=== PATIENT | male | born 1990 | race Hispanic/Latino ===

== ENCOUNTER 2018-02-18 14:19 | Inpatient (IN) | payer OTHER ==
[~2018-02-18] VITALS: Ht 188 cm; Wt 113.6 kg
[2018-02-18 14:34] LABS: BASOPHILS % (AUTO) 0.3 % (0.0-5.0); MEAN CORPUSCULAR HEMOGLOBIN 31.1 pg (27.0-33.0); MEAN CORPUSCULAR HGB CONC 35.2 g/dL (32.0-36.0); MEAN CORPUSCULAR VOLUME 88.3 fL (79-99); MONOCYTES % (AUTO) 5.4 % (3.0-13.0); NEUTROPHILS % (AUTO) 90.3 % (40.0-77.0); PLATELET COUNT (AUTO) 162 K/uL (130-400); RED BLOOD CELL COUNT(AUTO) 5.44 MIL/uL (4.50-6.20); WHITE BLOOD COUNT (AUTO) 12.9 K/uL (4.8-10.8)
[2018-02-18 14:46] LABS: CREATININE 2.4 mg/dL (0.5-1.5); POTASSIUM 3.5 mmol/L (3.5-5.1)
[2018-02-18] MEDS ORDERED: SODIUM CHLORIDE 0.9% 1000ML 1,000 ML IV ONE ×2 (14:51→16:52)
[2018-02-18] MEDS ORDERED: ONDANSETRON HCL MDV 20ML 2 MG/ML VIAL ONE ×2 (14:51→22:10)
[2018-02-18] MEDS ORDERED: MORPHINE SULFATE 4 MG/1ML SYG ONE ×2 (14:51→16:53)
[2018-02-18 14:55] LABS: ALBUMIN 3.4 g/dL (3.5-5.0); BILIRUBIN,TOTAL 2.7 mg/dL (0.2-1.0)
[2018-02-18 17:28] LABS: INR 2.38 (0.85-1.15); PARTIAL THROMBOPLASTIN TIME 31.5 SEC (26.3-35.5); PROTHROMBIN TIME 24.6 SEC (9.6-11.6)
[2018-02-18 17:49] LABS: AMPHET/METH SCREEN,URINE NEGATIVE (NEGATIVE); BARBITURATE SCREEN, URINE NEGATIVE (NEGATIVE); BENZODIAZEPINES SCREEN,URINE NEGATIVE (NEGATIVE); CANNABINOID SCREEN,URINE NEGATIVE (NEGATIVE); COCAINE SCREEN,URINE POSITIVE (NEGATIVE); OPIATE SCREEN,URINE NEGATIVE (NEGATIVE); PHENCYCLIDINE SCREEN,URINE NEGATIVE (NEGATIVE)
[2018-02-18] MEDS ORDERED: MORPHINE SULFATE 2 MG/ML 1ML SYG IV PRN (18:00)
[2018-02-18] MEDS ORDERED: MAG HYDROX/AL HYDROX/SIMETH ES 30 ML SUSP UDCUP PO PRN (18:00)
[2018-02-18] MEDS ORDERED: IBUPROFEN 400 MG TABLET PO PRN (18:00)
[2018-02-18] MEDS ORDERED: HYDRALAZINE HCL 20 MG/ML VIAL IV PRN (18:00)
[2018-02-18 18:52] LABS: CHOLESTEROL 94 mg/dL (<200); HDL CHOLESTEROL 49 mg/dL (29-71); LDL DIRECT 44 mg/dL (0-99); TRIGLYCERIDES 46 mg/dL (30-200)
[2018-02-18] MEDS: SODIUM CHLORIDE 0.9% 1000ML 1,000 ML IV SCH (19:30)
[2018-02-18 20:30] VITALS: BP 110/46
[2018-02-18] MEDS: ONDANSETRON HCL 4 MG/2 ML VIAL IV PRN (22:11)
[2018-02-18 23:00] VITALS: BP 112/48
[2018-02-19] VITALS (7 sets, daily range): BP systolic 110–138; BP diastolic 50–80
[2018-02-19] MEDS: SODIUM CHLORIDE 0.9% 1000ML 1,000 ML IV SCH ×2 (02:04→20:54)
[2018-02-19 05:02] LABS: HEMATOCRIT 44.4 % (42-54); MEAN CORPUSCULAR HEMOGLOBIN 32.1 pg (27.0-33.0); MEAN CORPUSCULAR HGB CONC 36.3 g/dL (32.0-36.0); MEAN CORPUSCULAR VOLUME 88.5 fL (79-99); NUCLEATED RED BLOOD CELLS 0.1 % (0.0-0.19); PLATELET COUNT (AUTO) 144 K/uL (130-400); RED BLOOD CELL COUNT(AUTO) 5.02 MIL/uL (4.50-6.20); RED CELL DISTRIBUTION WIDTH 12.9 % (11.0-15.5); WHITE BLOOD COUNT (AUTO) 10.1 K/uL (4.8-10.8)
[2018-02-19 05:13] LABS: CREATININE 2.3 mg/dL (0.5-1.5); MAGNESIUM 1.9 mg/dL (1.80-2.40); POTASSIUM 3.6 mmol/L (3.5-5.1)
[2018-02-19 05:56] LABS: INR 1.63 (0.85-1.15); PARTIAL THROMBOPLASTIN TIME 30.8 SEC (26.3-35.5)
[2018-02-19] MEDS ORDERED: MORPHINE SULFATE 4 MG/1ML SYG ONE (08:25)
[2018-02-19] MEDS: PANTOPRAZOLE SODIUM 40 MG TABLET.DR PO SCH (08:28)
[2018-02-19] MEDS ORDERED: ONDANSETRON HCL MDV 20ML 2 MG/ML VIAL ONE (08:37)
[2018-02-19] MEDS: ONDANSETRON HCL 4 MG/2 ML VIAL IV PRN (08:42)
[2018-02-19 09:25] LABS: ALBUMIN 3.2 g/dL (3.5-5.0); BILIRUBIN,TOTAL 2.1 mg/dL (0.2-1.0); TOTAL PROTEIN, SERUM 6.3 g/dL (6.0-8.3)
[2018-02-19 11:51] LABS: % IRON SATURATION 46.6 % (30-44)
[2018-02-19] MEDS: MORPHINE SULFATE 4 MG/1ML SYG IV PRN ×2 (13:42→20:54)
[2018-02-19] MEDS ORDERED: BISACODYL 10 MG SUPP.RECT RC PRN (19:00)
[2018-02-20] VITALS (7 sets, daily range): BP systolic 115–140; BP diastolic 68–94
[2018-02-20 04:45] LABS: INR 1.27 (0.85-1.15); PARTIAL THROMBOPLASTIN TIME 28.5 SEC (26.3-35.5); PROTHROMBIN TIME 13.3 SEC (9.6-11.6)
[2018-02-20 05:15] LABS: BILIRUBIN,DIRECT 1.3 mg/dL (0.0-0.3); BILIRUBIN,TOTAL 2.7 mg/dL (0.2-1.0); CREATININE 2.5 mg/dL (0.5-1.5); POTASSIUM 3.8 mmol/L (3.5-5.1); TOTAL PROTEIN, SERUM 6.1 g/dL (6.0-8.3)
[2018-02-20] MEDS: SODIUM CHLORIDE 0.9% 1000ML 1,000 ML IV SCH ×2 (05:34→19:55)
[2018-02-20 08:21] LABS: HEPATITIS A ANTIBODY IGM Negative (Negative); HEPATITIS B CORE IGM Negative (Negative); HEPATITIS Bs ANTIGEN SCREEN P Negative (Negative)
[2018-02-20] MEDS: PANTOPRAZOLE SODIUM 40 MG TABLET.DR PO SCH (10:25)
[2018-02-20] MEDS: MORPHINE SULFATE 4 MG/1ML SYG IV PRN ×2 (14:52→19:55)
[2018-02-21] MEDS: SODIUM CHLORIDE 0.9% 1000ML 1,000 ML IV SCH ×2 (01:39→20:22)
[2018-02-21 04:00] VITALS: BP 132/76
[2018-02-21 05:53] LABS: BASOPHILS % (AUTO) 0.5 % (0.0-5.0); EOSINOPHILS % (AUTO) 1.8 % (0.0-8.0); HEMATOCRIT 42.2 % (42-54); LYMPHOCYTES % (AUTO) 14.7 % (21.0-51.0); MEAN CORPUSCULAR HEMOGLOBIN 31.6 pg (27.0-33.0); MEAN CORPUSCULAR HGB CONC 35.4 g/dL (32.0-36.0); MEAN CORPUSCULAR VOLUME 89.3 fL (79-99); MONOCYTES % (AUTO) 10.3 % (3.0-13.0); NEUTROPHILS % (AUTO) 72.7 % (40.0-77.0); PLATELET COUNT (AUTO) 153 K/uL (130-400); RED BLOOD CELL COUNT(AUTO) 4.73 MIL/uL (4.50-6.20); RED CELL DISTRIBUTION WIDTH 13.2 % (11.0-15.5); WHITE BLOOD COUNT (AUTO) 9.4 K/uL (4.8-10.8)
[2018-02-21 06:18] LABS: ALBUMIN 2.9 g/dL (3.5-5.0); BILIRUBIN,TOTAL 2.1 mg/dL (0.2-1.0); CREATININE 2.9 mg/dL (0.5-1.5); POTASSIUM 3.6 mmol/L (3.5-5.1); TOTAL PROTEIN, SERUM 6.2 g/dL (6.0-8.3)
[2018-02-21 07:00] VITALS: BP 131/79
[2018-02-21] MEDS: PANTOPRAZOLE SODIUM 40 MG TABLET.DR PO SCH (09:04)
[2018-02-21] MEDS: MORPHINE SULFATE 4 MG/1ML SYG IV PRN ×3 (09:05→23:35)
[2018-02-21] MEDS: ONDANSETRON HCL MDV 20ML 2 MG/ML VIAL IV PRN (10:45)
[2018-02-21 11:00] VITALS: BP 128/77
[2018-02-21 19:30] VITALS: BP 139/83
[2018-02-21 23:57] VITALS: BP 126/57
[2018-02-22] MEDS: SODIUM CHLORIDE 0.9% 1000ML 1,000 ML IV SCH ×4 (01:19→21:48)
[2018-02-22 04:15] VITALS: BP 133/79
[2018-02-22 07:00] VITALS: BP 132/95
[2018-02-22] MEDS: MORPHINE SULFATE 4 MG/1ML SYG IV PRN ×3 (08:48→19:54)
[2018-02-22] MEDS: ONDANSETRON HCL MDV 20ML 2 MG/ML VIAL IV PRN ×2 (08:49→23:35)
[2018-02-22] MEDS: PANTOPRAZOLE SODIUM 40 MG TABLET.DR PO SCH (08:54)
[2018-02-22 11:00] VITALS: BP 121/76
[2018-02-22 19:25] VITALS: BP 131/80
[2018-02-23 00:20] VITALS: BP 134/79
[2018-02-23] MEDS: SODIUM CHLORIDE 0.9% 1000ML 1,000 ML IV SCH ×4 (01:50→15:57)
[2018-02-23 03:36] VITALS: BP 131/81
[2018-02-23 07:00] VITALS: BP 122/89
[2018-02-23 09:15] LABS: ALBUMIN 3.2 g/dL (3.5-5.0); BILIRUBIN,TOTAL 1.8 mg/dL (0.2-1.0); CREATININE 3.2 mg/dL (0.5-1.5); POTASSIUM 4.1 mmol/L (3.5-5.1)
[2018-02-23] MEDS: PANTOPRAZOLE SODIUM 40 MG TABLET.DR PO SCH (10:08)
[2018-02-23 11:00] VITALS: BP 131/59
[2018-02-23] MEDS: MORPHINE SULFATE 4 MG/1ML SYG IV PRN (15:46)
[2018-02-23 16:23] VITALS: BP 108/53
[2018-02-23 16:26] LABS: CREATINE KINASE MB < 0.5 ng/mL (0.5-3.6); CREATINE KINASE, TOTAL 54 U/L (21-232); MYOGLOBIN 61 ng/mL (10-92); TROPONIN I < 0.04 ng/mL (0.00-0.06)
[2018-02-23 18:29] LABS: APPEARANCE,URINE Clear (CLEAR); BILIRUBIN,URINE Negative (NEGATIVE); COLOR,URINE Yellow (YELLOW); GLUCOSE, URINE (UA) Negative (NEGATIVE); KETONES,URINE Trace mg/dL (NEGATIVE); LEUKOCYTE ESTERASE ,URINE Negative (NEGATIVE); NITRATE,URINE Negative (NEGATIVE); OCCULT BLOOD,URINE Trace (NEGATIVE); PROTEIN,URINE Negative (NEGATIVE)
[2018-02-23 19:15] VITALS: BP 139/87
[2018-02-23 20:28] LABS: BACTERIA,URINE Rare /HPF (None Seen); RBC,URINE 0-1 /HPF (0-1); SQUAMOUS EPITHELIAL CELL,UR Rare /HPF (0-2); WBC,URINE 0-1 /HPF (0-1)
[2018-02-24] MEDS: SODIUM CHLORIDE 0.9% 1000ML 1,000 ML IV SCH ×3 (00:06→20:19)
[2018-02-24] MEDS: MORPHINE SULFATE 4 MG/1ML SYG IV PRN (00:07)
[2018-02-24 00:15] VITALS: BP 140/79
[2018-02-24 04:18] VITALS: BP 138/69
[2018-02-24 06:16] LABS: MEAN CORPUSCULAR HEMOGLOBIN 31.6 pg (27.0-33.0); MEAN CORPUSCULAR HGB CONC 35.6 g/dL (32.0-36.0); MEAN CORPUSCULAR VOLUME 88.9 fL (79-99); PLATELET COUNT (AUTO) 144 K/uL (130-400); RED BLOOD CELL COUNT(AUTO) 4.95 MIL/uL (4.50-6.20); RED CELL DISTRIBUTION WIDTH 13.5 % (11.0-15.5); WHITE BLOOD COUNT (AUTO) 11.2 K/uL (4.8-10.8)
[2018-02-24 06:51] LABS: ALBUMIN 3.2 g/dL (3.5-5.0); BILIRUBIN,TOTAL 2.1 mg/dL (0.2-1.0); CREATININE 2.9 mg/dL (0.5-1.5); POTASSIUM 3.6 mmol/L (3.5-5.1); TOTAL PROTEIN, SERUM 7.1 g/dL (6.0-8.3)
[2018-02-24 08:00] VITALS: BP 146/81
[2018-02-24] MEDS: PANTOPRAZOLE SODIUM 40 MG TABLET.DR PO SCH (08:18)
[2018-02-24 12:00] VITALS: BP 132/76
[2018-02-24 16:00] VITALS: BP 142/61
[2018-02-24 20:00] VITALS: BP 130/74
[2018-02-25] VITALS: BP 109/60
[2018-02-25] MEDS: SODIUM CHLORIDE 0.9% 1000ML 1,000 ML IV SCH ×4 (00:54→23:01)
[2018-02-25] MEDS: MORPHINE SULFATE 4 MG/1ML SYG IV PRN ×2 (01:16→06:54)
[2018-02-25 05:09] LABS: HEMATOCRIT 43.9 % (42-54); MEAN CORPUSCULAR HEMOGLOBIN 31.4 pg (27.0-33.0); MEAN CORPUSCULAR VOLUME 89.8 fL (79-99); PLATELET COUNT (AUTO) 131 K/uL (130-400); RED BLOOD CELL COUNT(AUTO) 4.89 MIL/uL (4.50-6.20); RED CELL DISTRIBUTION WIDTH 13.3 % (11.0-15.5); WHITE BLOOD COUNT (AUTO) 10.2 K/uL (4.8-10.8)
[2018-02-25 05:35] LABS: ALBUMIN 3.2 g/dL (3.5-5.0); BILIRUBIN,TOTAL 1.9 mg/dL (0.2-1.0); CREATININE 2.6 mg/dL (0.5-1.5); POTASSIUM 3.5 mmol/L (3.5-5.1)
[2018-02-25 08:00] VITALS: BP 128/67
[2018-02-25] MEDS: PANTOPRAZOLE SODIUM 40 MG TABLET.DR PO SCH (09:27)
[2018-02-25 12:00] VITALS: BP 132/82
[2018-02-25] MEDS ORDERED: DIATR MEGLU/DIATRIZOATE SODIUM 30 ML BOTTLE ONE (12:15)
[2018-02-25] MEDS ORDERED: POTASSIUM CHLORIDE 20 MEQ ERTAB PO ONE (13:10)
[2018-02-25] MEDS: POTASSIUM CHLORIDE 20 MEQ ERTAB PO SCH ×2 (14:49→15:10)
[2018-02-25 16:00] VITALS: BP 123/69
[2018-02-25 20:00] VITALS: BP 132/83
[2018-02-26] VITALS: BP 133/73
[2018-02-26] MEDS: SODIUM CHLORIDE 0.9% 1000ML 1,000 ML IV SCH ×4 (00:57→17:03)
[2018-02-26 05:01] LABS: ALBUMIN 3.1 g/dL (3.5-5.0); BILIRUBIN,TOTAL 1.9 mg/dL (0.2-1.0); CREATININE 2.2 mg/dL (0.5-1.5); POTASSIUM 3.6 mmol/L (3.5-5.1)
[2018-02-26 05:18] LABS: INR 1.15 (0.85-1.15); PARTIAL THROMBOPLASTIN TIME 28.6 SEC (26.3-35.5)
[2018-02-26 05:29] VITALS: BP 114/70
[2018-02-26 08:00] VITALS: BP 119/74
[2018-02-26] MEDS: PANTOPRAZOLE SODIUM 40 MG TABLET.DR PO SCH (08:21)
[2018-02-26 11:44] VITALS: BP 104/63
[2018-02-26] MEDS: MORPHINE SULFATE 4 MG/1ML SYG IV PRN ×2 (12:58→22:16)
[2018-02-26 16:00] VITALS: BP 139/76
[2018-02-26 19:47] VITALS: BP 113/64
[2018-02-27] MEDS: SODIUM CHLORIDE 0.9% 1000ML 1,000 ML IV SCH ×4 (00:18→22:08)
[2018-02-27 00:25] VITALS: BP 125/72
[2018-02-27 04:34] VITALS: BP 109/55
[2018-02-27 05:25] LABS: ALBUMIN 2.9 g/dL (3.5-5.0); BILIRUBIN,DIRECT 0.5 mg/dL (0.0-0.3); CREATININE 2.4 mg/dL (0.5-1.5); POTASSIUM 3.3 mmol/L (3.5-5.1); TOTAL PROTEIN, SERUM 6.6 g/dL (6.0-8.3)
[2018-02-27] MEDS: MORPHINE SULFATE 4 MG/1ML SYG IV PRN ×2 (06:55→22:07)
[2018-02-27 09:13] VITALS: BP 122/74
[2018-02-27] MEDS: PANTOPRAZOLE SODIUM 40 MG TABLET.DR PO SCH (09:40)
[2018-02-27 12:00] VITALS: BP 118/68
[2018-02-27] MEDS ORDERED: LIDOCAINE HCL-MPF 1% 2ML VIAL IVP PRN (12:15)
[2018-02-27] MEDS ORDERED: POTASSIUM CHLORIDE 20MEQ/100ML 100 ML IV PRN (12:15)
[2018-02-27] MEDS ORDERED: POTASSIUM CHLORIDE 20 MEQ ERTAB PO PRN (12:15)
[2018-02-27] MEDS ORDERED: POTASSIUM CHLORIDE 10% ELIXIR 20 MEQ/15 ML UDCUP PO PRN (12:15)
[2018-02-27 16:58] VITALS: BP 122/84
[2018-02-27 20:37] VITALS: BP 126/69
[2018-02-28 00:04] VITALS: BP 110/62
[2018-02-28 03:42] VITALS: BP 106/56
[2018-02-28 05:51] LABS: ALBUMIN 3.1 g/dL (3.5-5.0); BILIRUBIN,DIRECT 0.4 mg/dL (0.0-0.3); MAGNESIUM 1.7 mg/dL (1.80-2.40); POTASSIUM 3.5 mmol/L (3.5-5.1); TOTAL PROTEIN, SERUM 6.9 g/dL (6.0-8.3)
[2018-02-28] MEDS: SODIUM CHLORIDE 0.9% 1000ML 1,000 ML IV SCH ×2 (06:18→23:30)
[2018-02-28 09:23] VITALS: BP 119/74
[2018-02-28] MEDS ORDERED: POTASSIUM CHLORIDE 20 MEQ ERTAB PO SCH (09:30)
[2018-02-28] MEDS: PANTOPRAZOLE SODIUM 40 MG TABLET.DR PO SCH (09:43)
[2018-02-28] MEDS ORDERED: MAGNESIUM 2GM PREMIX 50ML 50 ML IV SCH (15:45)
[2018-02-28 17:39] VITALS: BP 120/92
[2018-02-28 19:27] VITALS: BP 113/61
[2018-02-28] MEDS ORDERED: DIATR MEGLU/DIATRIZOATE SODIUM 30 ML BOTTLE ONE (22:32)
[2018-02-28 23:48] VITALS: BP 117/74
[2018-03-01 03:10] VITALS: BP 114/56
[2018-03-01 05:31] LABS: ALBUMIN 3.4 g/dL (3.5-5.0); BILIRUBIN,DIRECT 0.5 mg/dL (0.0-0.3); BILIRUBIN,TOTAL 1.3 mg/dL (0.2-1.0); CREATININE 1.9 mg/dL (0.5-1.5); POTASSIUM 3.6 mmol/L (3.5-5.1); TOTAL PROTEIN, SERUM 7.5 g/dL (6.0-8.3)
[2018-03-01 08:00] VITALS: BP 113/53
[2018-03-01] MEDS: PANTOPRAZOLE SODIUM 40 MG TABLET.DR PO SCH (08:51)
[2018-03-01] MEDS: SODIUM CHLORIDE 0.9% 1000ML 1,000 ML IV SCH (08:54)
[2018-03-01 11:00] VITALS: BP 101/66
[2018-03-01 16:00] VITALS: BP 132/64
[2018-03-01] MEDS ORDERED: PANT40TA PO (16:44)
== END 2018-03-01 19:30 | disposition home or self-care (01) | DRG 441 ==
LOC: EDH 14:19 → EDHIP 14:20 → 3DH 02-19 00:32
PROVIDERS: ADMIT Internal Medicine Nephrology; ATTEND Internal Medicine Nephrology
DX: K72.00 Acute and subacute hepatic failure without coma (principal); K85.90 Acute pancreatitis without necrosis or infection, unspecified; N17.0 Acute kidney failure with tubular necrosis; K92.0 Hematemesis; D68.4 Acquired coagulation factor deficiency; D69.59 Other secondary thrombocytopenia; E86.0 Dehydration; B17.9 Acute viral hepatitis, unspecified; F10.10 Alcohol abuse, uncomplicated; F14.90 Cocaine use, unspecified, uncomplicated; F17.210 Nicotine dependence, cigarettes, uncomplicated; N18.9 Chronic kidney disease, unspecified; T50.905A Adverse effect of unspecified drugs, medicaments and biological substances, initial encounter; Y92.89 Other specified places as the place of occurrence of the external cause
CPT/HCPCS: 36415; 74150; 74176; 76705; 80048; 80053; 80061; 80074; 80076; 80305; 81001; 82150; 82550; 82553; 83540; 83550; 83690; 83735; 83874; 84484; 85025; 85027; 85610; 85730; 86160; 86255; 86701; 87390; 99291; G0480; J2270; J3475; J7030; Q9963

== ENCOUNTER 2020-04-02 06:48 | Emergency (ER) | payer SELFPAY ==
[~2020-04-02 06:48] MED LIST: PANT40TA PO
[2020-04-02] MEDS ORDERED: ONDANSETRON HCL 4 MG/2 ML VIAL ONE (07:23)
[2020-04-02] MEDS ORDERED: SODIUM CHLORIDE 0.9% 1000ML 1,000 ML IV ONE ×2 (07:23→11:32)
[2020-04-02] MEDS ORDERED: FAMOTIDINE/PF 20 MG/2 ML VIAL IV ONE (07:24)
[2020-04-02 07:29] LABS: BASOPHILS % (AUTO) 0.3 % (0.0-5.0); EOSINOPHILS % (AUTO) 1.2 % (0.0-8.0); HEMATOCRIT 48.6 % (42-54); LYMPHOCYTES % (AUTO) 11.4 % (21.0-51.0); MEAN CORPUSCULAR HEMOGLOBIN 30.9 pg (27.0-33.0); MEAN CORPUSCULAR HGB CONC 34.4 g/dL (32.0-36.0); MEAN CORPUSCULAR VOLUME 89.8 fL (79-99); MONOCYTES % (AUTO) 5.3 % (3.0-13.0); NEUTROPHILS % (AUTO) 81.3 % (40.0-77.0); PLATELET COUNT (AUTO) 257 K/uL (130-400); RED BLOOD CELL COUNT(AUTO) 5.41 MIL/uL (4.50-6.20); RED CELL DISTRIBUTION WIDTH 12.3 % (11.0-15.5); WHITE BLOOD COUNT (AUTO) 18.4 K/uL (4.8-10.8)
[2020-04-02 07:47] LABS: INR 0.92 (0.85-1.15); PARTIAL THROMBOPLASTIN TIME 28.5 SEC (26.3-35.5)
[2020-04-02 07:54] LABS: CREATININE 1.2 mg/dL (0.5-1.5); POTASSIUM 3.7 mmol/L (3.5-5.1)
[2020-04-02 07:54] LABS: APPEARANCE,URINE Clear (CLEAR); BILIRUBIN,URINE Negative (NEGATIVE); COLOR,URINE Yellow (YELLOW); GLUCOSE, URINE (UA) Negative (NEGATIVE); KETONES,URINE Negative (NEGATIVE); LEUKOCYTE ESTERASE ,URINE Negative (NEGATIVE); NITRATE,URINE Negative (NEGATIVE); OCCULT BLOOD,URINE Trace (NEGATIVE); PROTEIN,URINE Trace mg/dL (NEGATIVE)
[2020-04-02 08:00] LABS: BILIRUBIN,TOTAL 0.2 mg/dL (0.2-1.0)
[2020-04-02 08:02] LABS: AMPHET/METH SCREEN,URINE POSITIVE (NEGATIVE); BARBITURATE SCREEN, URINE NEGATIVE (NEGATIVE); BENZODIAZEPINES SCREEN,URINE NEGATIVE (NEGATIVE); CANNABINOID SCREEN,URINE NEGATIVE (NEGATIVE); COCAINE SCREEN,URINE NEGATIVE (NEGATIVE); OPIATE SCREEN,URINE NEGATIVE (NEGATIVE); PHENCYCLIDINE SCREEN,URINE NEGATIVE (NEGATIVE)
[2020-04-02] MEDS ORDERED: HYOSCYAMINE SULFATE 0.125 MG TAB.SUBL SL ONE (08:47)
[2020-04-02] MEDS ORDERED: KETOROLAC TROMETHAMINE 30MG/ML ONE (09:17)
[2020-04-02 09:18] LABS: BACTERIA,URINE Few /HPF (None Seen); RBC,URINE 0-1 /HPF (0-1); SQUAMOUS EPITHELIAL CELL,UR 0-2 /HPF (0-2); WBC,URINE 0-1 /HPF (0-1)
[2020-04-02 09:19] LABS: CALCIUM OXALATE CRYSTALS,UR Few /LPF (None Seen)
[2020-04-02] MEDS ORDERED: LEVOFLOXACIN 500 MG/D5W 100 ML 100 ML ONE (11:33)
== END 2020-04-02 12:43 | disposition home or self-care (01) ==
LOC: EDH 06:48
DX: A09 Infectious gastroenteritis and colitis, unspecified (principal); Z72.0 Tobacco use
CPT/HCPCS: 36415; 71045; 74176; 76705; 80053; 80305; 81001; 82150; 82550; 83690; 84484; 85025; 85610; 85730; 93005; 96361; 96365; 96375; 99285; J1885; J1956; J2405; J3490; J7030 ×2

== ENCOUNTER 2020-04-05 09:23 | Emergency (ER) | payer SELFPAY ==
[2020-04-05 10:09] LABS: BASOPHILS % (AUTO) 0.4 % (0.0-5.0); EOSINOPHILS % (AUTO) 2.3 % (0.0-8.0); HEMATOCRIT 48.4 % (42-54); LYMPHOCYTES % (AUTO) 18.5 % (21.0-51.0); MEAN CORPUSCULAR HEMOGLOBIN 30.9 pg (27.0-33.0); MEAN CORPUSCULAR HGB CONC 34.3 g/dL (32.0-36.0); MEAN CORPUSCULAR VOLUME 90.1 fL (79-99); MONOCYTES % (AUTO) 7.5 % (3.0-13.0); NEUTROPHILS % (AUTO) 70.9 % (40.0-77.0); PLATELET COUNT (AUTO) 278 K/uL (130-400); RED BLOOD CELL COUNT(AUTO) 5.37 MIL/uL (4.50-6.20); RED CELL DISTRIBUTION WIDTH 12.2 % (11.0-15.5); WHITE BLOOD COUNT (AUTO) 14.2 K/uL (4.8-10.8)
[2020-04-05 10:11] LABS: APPEARANCE,URINE Clear (CLEAR); BILIRUBIN,URINE Negative (NEGATIVE); COLOR,URINE Yellow (YELLOW); GLUCOSE, URINE (UA) Negative (NEGATIVE); KETONES,URINE Negative (NEGATIVE); LEUKOCYTE ESTERASE ,URINE Negative (NEGATIVE); NITRATE,URINE Negative (NEGATIVE); OCCULT BLOOD,URINE Negative (NEGATIVE); PROTEIN,URINE Negative (NEGATIVE)
[2020-04-05 10:16] LABS: AMPHET/METH SCREEN,URINE NEGATIVE (NEGATIVE); BARBITURATE SCREEN, URINE NEGATIVE (NEGATIVE); BENZODIAZEPINES SCREEN,URINE NEGATIVE (NEGATIVE); CANNABINOID SCREEN,URINE NEGATIVE (NEGATIVE); COCAINE SCREEN,URINE NEGATIVE (NEGATIVE); OPIATE SCREEN,URINE NEGATIVE (NEGATIVE); PHENCYCLIDINE SCREEN,URINE NEGATIVE (NEGATIVE)
[2020-04-05] MEDS ORDERED: FAMOTIDINE/PF 20 MG/2 ML VIAL IV ONE (10:29)
[2020-04-05] MEDS ORDERED: MAG HYDROX/AL HYDROX/SIMETH ES 30 ML SUSP UDCUP ONE (10:29)
[2020-04-05] MEDS ORDERED: LIDOCAINE HCL 2% VISCOUS 15 ML UDCUP ONE (10:29)
[2020-04-05 10:30] LABS: CREATININE 1.4 mg/dL (0.5-1.5)
[2020-04-05 10:35] LABS: ALBUMIN 3.9 g/dL (3.5-5.0); BILIRUBIN,TOTAL 0.4 mg/dL (0.2-1.0); TOTAL PROTEIN, SERUM 8.1 g/dL (6.0-8.3)
== END 2020-04-05 13:18 | disposition home or self-care (01) ==
LOC: EDH 09:23
DX: K29.00 Acute gastritis without bleeding (principal); Z72.0 Tobacco use
CPT/HCPCS: 36415; 80053; 80305; 81003; 83690; 85025; 96374; 99284; J3490; 93005